=== PATIENT | male | born 1940 | race Caucasian/White ===

== ENCOUNTER 2017-02-02 02:08 | Inpatient (IN) ==
[2017-02-02] MEDS ORDERED: SODIUM CHLORIDE 0.9% 2,000 ML IV STA (03:13)
[2017-02-02] MEDS ORDERED: VANCOMYCIN INJ 1,000 MG in SODIUM CHLORIDE 0.9% 250 ML IV STA (03:15)
[2017-02-02] MEDS ORDERED: CEFEPIME 2,000 MG in SODIUM CHLORIDE 0.9% 100 ML IV STA (03:15)
[2017-02-02] MEDS ORDERED: ACETAMINOPHEN 650 MG SUPP RECTAL STA (04:20)
[2017-02-02] MEDS ORDERED: KETOROLAC 30 MG/1 ML VIAL IV STA (04:20)
[2017-02-02] MEDS ORDERED: VANCOMYCIN 1,000 MG VIAL ONE (04:32)
[2017-02-02 04:42] LABS: Basophils % 0.3 % (0.0-0.8); Hemoglobin 13.1 GM/DL (14.0-18.0); Immature Granulocytes % 0.3 %; Immature Granulocytes Absolute 0.03 #; Lymphocytes # 0.5 10*3/uL (1.4-4.0); Lymphocytes % 4.4 % (21.2-54.2); Mean Corpuscular HGB Conc 33.6 GM/DL (32-36); Mean Corpuscular Hemoglobin 31 PG (27-34); Mean Corpuscular Volume 93.3 FL (87-102); Mean Platelet Volume 10.8 FL (9.6-12.0); Monocytes # 0.8 10*3/uL (0.11-0.8); Monocytes % 6.8 % (1.7-12.7); Neutrophils # 10.1 10*3/uL (1.4-7.4); Neutrophils % 88.2 % (38.7-73.9); Platelet Count 140 T/CUMM (130-400); Red Blood Count 4.18 MC/CUMM (3.8-5.5); Red Cell Distribution Width 13.5 % (9.3-17.3); White Blood Count 11.5 T/CUMM (4-12)
[2017-02-02 05:17] LABS: Lactic Acid 3.3 MMOL/L (0.4-2.0)
[2017-02-02 05:18] LABS: Band Neutrophils 7 % (0-10); Giant Platelets Few; Hypochromasia 1+; Lymphocytes 5 % (20-55); Ovalocytes Slight; Platelet Estimate Normal; Segmented Neutrophils 82 % (50-85); Total Cells Counted 100
[2017-02-02 05:21] LABS: Calcium 8.3 MG/DL (8.5-10.1)
[2017-02-02 05:22] LABS: Albumin 2.5 G/DL (3.4-5.0); Bilirubin,Total 0.7 MG/DL (0.2-1.0); Total Protein 6.3 G/DL (6.4-8.3)
[2017-02-02 05:23] LABS: Osmolality,Calculated 298.3 MOS/KG (273-304)
[2017-02-02] MEDS ORDERED: ACETAMINOPHEN 650 MG SUPP RECTAL ONE (05:25)
[2017-02-02] MEDS ORDERED: KETOROLAC 30 MG/1 ML VIAL ONE (05:25)
[2017-02-02 05:41] LABS: Apearance,Urine CLEAR (Clear); Bilirubin,Urine Negative (Negative); Blood, Urine Moderate mg/dL (Negative); Glucose,Urine (UA) Negative (Negative); Ketones,Urine 5 mg/dL (Negative); Mucus,Urine Occasional /LPF (Occasional); Nitrite,Urine Negative (Negative); Protein,Urine 30 MG/DL; RBC,Urine 3 /HPF (0-4); Squamous Epithelial Cell,Urine Occasional /HPF (0-10); Urine Color Amber (Yellow); Urine Specific Gravity 1.024 (1.001-1.035); WBC,Urine 9 /HPF (0-6)
[2017-02-02] MEDS ORDERED: ENOXAPARIN 40 MG/0.4 ML SYRINGE SUBCUT SCH (06:43)
[2017-02-02] MEDS ORDERED: GLUCAGON 1 MG VIAL IM PRN ×2 (06:43→18:12)
[2017-02-02] MEDS ORDERED: DEXTROSE 50% 25 GM/50 ML VIAL IV PRN ×2 (06:43→18:12)
[2017-02-02] MEDS ORDERED: ACETAMINOPHEN 325 MG TABLET PO PRN (06:43)
[2017-02-02] MEDS ORDERED: ALBUTEROL 2.5 MG/3 ML NEB RESP TX PRN ×2 (06:43→07:00)
[2017-02-02] MEDS ORDERED: ONDANSETRON 4 MG/2 ML VIAL IV PRN (06:43)
[2017-02-02] MEDS ORDERED: MORPHINE 2 MG/1 ML SYRINGE IV PRN (06:43)
[2017-02-02] MEDS: ALBUTEROL 2.5 MG/3 ML NEB RESP TX SCH ×4 (08:12→19:27)
[2017-02-02 08:19] LABS: Magnesium 1.9 MG/DL (1.8-2.4); Thyroid Stimulating Hormone 3.64 uIU/ml (0.358-3.74)
[2017-02-02] MEDS: INSULIN LISPRO 100 UNIT/ML SUBCUT SCH ×4 (08:28→21:41)
[2017-02-02] MEDS: DOCUSATE SODIUM 100 MG CAPSULE PO SCH ×2 (08:28→21:41)
[2017-02-02] MEDS: PANTOPRAZOLE 40 MG TABLET PO SCH (08:28)
[2017-02-02] MEDS: ENOXAPARIN 100 MG/ML SYRINGE SUBCUT SCH ×2 (08:31→21:42)
[2017-02-02] MEDS: SODIUM CHLORIDE 0.9% 1,000 ML IV SCH ×2 (09:30→17:32)
[2017-02-02] MEDS: LEVOFLOXACIN INJ 750 MG in PREMIX 1 EACH IV SCH (11:29)
[2017-02-02] MEDS: PIPERACILLIN/TAZOBACTAM 3,375 MG in SODIUM CHLORIDE 0.9% 100 ML IV SCH (17:31)
[2017-02-02] MEDS: ZINC OXIDE PASTE 113 GM TUBE TOP SCH ×2 (17:32→21:41)
[2017-02-02] MEDS: COLLAGENASE OINT 30 GM TUBE TOP SCH (17:32)
[2017-02-02] MEDS ORDERED: MAGNESIUM CITRATE 300 ML BOTTLE PO ONE (18:11)
[2017-02-02] MEDS ORDERED: SODIUM CHLORIDE 0.9% 1,000 ML IV SCH (18:30)
[2017-02-02] MEDS ORDERED: VANCOMYCIN INJ 1,000 MG in SODIUM CHLORIDE 0.9% 250 ML IV SCH (18:30)
[2017-02-02] MEDS: DONEPEZIL 10 MG TABLET PO SCH (21:40)
[2017-02-02] MEDS: DIVALPROEX 250 MG TABLET PO SCH (21:40)
[2017-02-02] MEDS: MEMANTINE 10 MG TABLET PO SCH (21:41)
[2017-02-02] MEDS: VANCOMYCIN INJ 1,500 MG in SODIUM CHLORIDE 0.9% 500 ML IV SCH (22:34)
[2017-02-03] MEDS: ALBUTEROL 2.5 MG/3 ML NEB RESP TX SCH ×7 (00:20→23:21)
[2017-02-03] MEDS: PIPERACILLIN/TAZOBACTAM 3,375 MG in SODIUM CHLORIDE 0.9% 100 ML IV SCH ×3 (02:36→16:53)
[2017-02-03] MEDS: SODIUM CHLORIDE 0.9% 1,000 ML IV SCH ×2 (05:36→17:48)
[2017-02-03] MEDS: LEVOTHYROXINE 100 MCG TABLET PO SCH (06:20)
[2017-02-03 06:58] LABS: Basophils % 0.3 % (0.0-0.8); Hematocrit 30.9 VOL% (42.0-52.0); Hemoglobin 10.4 GM/DL (14.0-18.0); Immature Granulocytes % 0.6 %; Immature Granulocytes Absolute 0.05 #; Lymphocytes # 0.7 10*3/uL (1.4-4.0); Lymphocytes % 9.2 % (21.2-54.2); Mean Corpuscular HGB Conc 33.7 GM/DL (32-36); Mean Corpuscular Hemoglobin 32 PG (27-34); Mean Corpuscular Volume 94.2 FL (87-102); Mean Platelet Volume 11.5 FL (9.6-12.0); Monocytes # 0.6 10*3/uL (0.11-0.8); Monocytes % 7.8 % (1.7-12.7); Neutrophils # 6.5 10*3/uL (1.4-7.4); Neutrophils % 82.1 % (38.7-73.9); Platelet Count 105 T/CUMM (130-400); Red Blood Count 3.28 MC/CUMM (3.8-5.5); Red Cell Distribution Width 13.6 % (9.3-17.3)
[2017-02-03 07:31] LABS: Albumin 1.9 G/DL (3.4-5.0); Bilirubin,Total 0.6 MG/DL (0.2-1.0); Calcium 7.9 MG/DL (8.5-10.1); Osmolality,Calculated 306.6 MOS/KG (273-304); Total Protein 5.1 G/DL (6.4-8.3)
[2017-02-03 08:13] LABS: Hypochromasia 1+
[2017-02-03] MEDS: OLANZapine 5 MG TABLET PO SCH (08:52)
[2017-02-03] MEDS: DIVALPROEX 250 MG TABLET PO SCH ×2 (08:52→23:12)
[2017-02-03] MEDS: ZINC OXIDE PASTE 113 GM TUBE TOP SCH ×2 (08:52→23:14)
[2017-02-03] MEDS: PANTOPRAZOLE 40 MG TABLET PO SCH (08:52)
[2017-02-03] MEDS: ENOXAPARIN 100 MG/ML SYRINGE SUBCUT SCH ×2 (08:52→23:12)
[2017-02-03] MEDS: FOLIC ACID 1 MG TABLET PO SCH (08:52)
[2017-02-03] MEDS: POLYETHYLENE GLYCOL POWDER 17 GM PACK PO SCH (08:52)
[2017-02-03] MEDS: MEMANTINE 10 MG TABLET PO SCH ×2 (08:52→23:12)
[2017-02-03] MEDS: DOCUSATE SODIUM 100 MG CAPSULE PO SCH ×2 (08:52→23:12)
[2017-02-03] MEDS: INSULIN LISPRO 100 UNIT/ML SUBCUT SCH ×4 (08:53→23:14)
[2017-02-03] MEDS ORDERED: MELOXICAM 7.5 MG TABLET PO SCH (09:00)
[2017-02-03] MEDS: COLLAGENASE OINT 30 GM TUBE TOP SCH (10:29)
[2017-02-03] MEDS ORDERED: SODIUM CHLORIDE 0.9% 1,000 ML IV SCH (16:30)
[2017-02-03] MEDS: VANCOMYCIN INJ 1,500 MG in SODIUM CHLORIDE 0.9% 500 ML IV SCH (23:11)
[2017-02-03] MEDS: DONEPEZIL 10 MG TABLET PO SCH (23:12)
[2017-02-04] MEDS: PIPERACILLIN/TAZOBACTAM 3,375 MG in SODIUM CHLORIDE 0.9% 100 ML IV SCH ×3 (03:04→17:46)
[2017-02-04] MEDS: ALBUTEROL 2.5 MG/3 ML NEB RESP TX SCH ×5 (03:04→20:36)
[2017-02-04] MEDS: LEVOTHYROXINE 100 MCG TABLET PO SCH (06:48)
[2017-02-04 07:12] LABS: Basophils % 0.3 % (0.0-0.8); Eosinophils % 0.4 % (0.00-10.9); Hematocrit 32.5 VOL% (42.0-52.0); Hemoglobin 10.7 GM/DL (14.0-18.0); Immature Granulocytes % 0.9 %; Immature Granulocytes Absolute 0.06 #; Lymphocytes # 0.8 10*3/uL (1.4-4.0); Lymphocytes % 12.6 % (21.2-54.2); Mean Corpuscular HGB Conc 32.9 GM/DL (32-36); Mean Corpuscular Hemoglobin 32 PG (27-34); Mean Corpuscular Volume 95.6 FL (87-102); Mean Platelet Volume 11.5 FL (9.6-12.0); Monocytes # 0.5 10*3/uL (0.11-0.8); Monocytes % 7.5 % (1.7-12.7); Neutrophils # 5.2 10*3/uL (1.4-7.4); Neutrophils % 78.3 % (38.7-73.9); Platelet Count 117 T/CUMM (130-400); White Blood Count 6.7 T/CUMM (4-12)
[2017-02-04] MEDS: SODIUM CHLORIDE 0.9% 1,000 ML IV SCH ×3 (07:41→18:02)
[2017-02-04 07:43] LABS: Calcium 7.5 MG/DL (8.5-10.1); Magnesium 2.6 MG/DL (1.8-2.4); Osmolality,Calculated 301.7 MOS/KG (273-304); Potassium 4.2 MMOL/L (3.5-5.1)
[2017-02-04] MEDS: OLANZapine 5 MG TABLET PO SCH (08:47)
[2017-02-04] MEDS: MEMANTINE 10 MG TABLET PO SCH ×2 (08:47→22:31)
[2017-02-04] MEDS: ENOXAPARIN 100 MG/ML SYRINGE SUBCUT SCH ×2 (08:47→22:30)
[2017-02-04] MEDS: DIVALPROEX 250 MG TABLET PO SCH ×2 (08:47→22:31)
[2017-02-04] MEDS: DOCUSATE SODIUM 100 MG CAPSULE PO SCH ×2 (08:47→22:32)
[2017-02-04] MEDS: FOLIC ACID 1 MG TABLET PO SCH (08:47)
[2017-02-04] MEDS: PANTOPRAZOLE 40 MG TABLET PO SCH (08:47)
[2017-02-04] MEDS: POLYETHYLENE GLYCOL POWDER 17 GM PACK PO SCH (08:48)
[2017-02-04] MEDS: INSULIN LISPRO 100 UNIT/ML SUBCUT SCH ×3 (08:48→17:46)
[2017-02-04] MEDS: ZINC OXIDE PASTE 113 GM TUBE TOP SCH ×2 (09:40→22:00)
[2017-02-04] MEDS: COLLAGENASE OINT 30 GM TUBE TOP SCH (09:40)
[2017-02-04] MEDS: LEVOFLOXACIN INJ 750 MG in PREMIX 1 EACH IV SCH (14:15)
[2017-02-04] MEDS: VANCOMYCIN INJ 1,500 MG in SODIUM CHLORIDE 0.9% 500 ML IV SCH (22:30)
[2017-02-04] MEDS: APIXABAN 5 MG TABLET PO SCH (22:31)
[2017-02-04] MEDS: DONEPEZIL 10 MG TABLET PO SCH (22:31)
[2017-02-05] MEDS: ALBUTEROL 2.5 MG/3 ML NEB RESP TX SCH ×7 (00:35→23:58)
[2017-02-05] MEDS: PIPERACILLIN/TAZOBACTAM 3,375 MG in SODIUM CHLORIDE 0.9% 100 ML IV SCH ×3 (03:39→16:05)
[2017-02-05 05:05] LABS: Basophils % 0.4 % (0.0-0.8); Eosinophils # 0.1 10*3/uL (0.0-0.87); Eosinophils % 1.1 % (0.00-10.9); Hematocrit 29.4 VOL% (42.0-52.0); Hemoglobin 9.8 GM/DL (14.0-18.0); Immature Granulocytes % 1.5 %; Immature Granulocytes Absolute 0.08 #; Lymphocytes # 0.9 10*3/uL (1.4-4.0); Lymphocytes % 16.8 % (21.2-54.2); Mean Corpuscular HGB Conc 33.3 GM/DL (32-36); Mean Corpuscular Hemoglobin 32 PG (27-34); Mean Corpuscular Volume 96.1 FL (87-102); Mean Platelet Volume 11.8 FL (9.6-12.0); Monocytes # 0.5 10*3/uL (0.11-0.8); Monocytes % 8.9 % (1.7-12.7); Neutrophils # 3.8 10*3/uL (1.4-7.4); Neutrophils % 71.3 % (38.7-73.9); Platelet Count 114 T/CUMM (130-400); Red Blood Count 3.06 MC/CUMM (3.8-5.5); Red Cell Distribution Width 13.7 % (9.3-17.3); White Blood Count 5.3 T/CUMM (4-12)
[2017-02-05 05:30] LABS: Calcium 7.5 MG/DL (8.5-10.1); Magnesium 2.4 MG/DL (1.8-2.4); Osmolality,Calculated 297.7 MOS/KG (273-304); Potassium 3.8 MMOL/L (3.5-5.1)
[2017-02-05] MEDS: INSULIN LISPRO 100 UNIT/ML SUBCUT SCH ×5 (06:09→20:27)
[2017-02-05] MEDS: SODIUM CHLORIDE 0.9% 1,000 ML IV SCH ×3 (06:10→23:25)
[2017-02-05] MEDS: LEVOTHYROXINE 100 MCG TABLET PO SCH (06:10)
[2017-02-05] MEDS: ZINC OXIDE PASTE 113 GM TUBE TOP SCH ×2 (09:50→20:31)
[2017-02-05] MEDS: DIVALPROEX 250 MG TABLET PO SCH ×2 (09:50→20:30)
[2017-02-05] MEDS: ENOXAPARIN 100 MG/ML SYRINGE SUBCUT SCH ×2 (09:50→20:28)
[2017-02-05] MEDS: FOLIC ACID 1 MG TABLET PO SCH (09:50)
[2017-02-05] MEDS: POLYETHYLENE GLYCOL POWDER 17 GM PACK PO SCH ×2 (09:50→09:58)
[2017-02-05] MEDS: DOCUSATE SODIUM 100 MG CAPSULE PO SCH ×3 (09:50→20:30)
[2017-02-05] MEDS: APIXABAN 5 MG TABLET PO SCH ×2 (09:50→20:30)
[2017-02-05] MEDS: COLLAGENASE OINT 30 GM TUBE TOP SCH (09:51)
[2017-02-05] MEDS: MEMANTINE 10 MG TABLET PO SCH ×2 (09:51→20:30)
[2017-02-05] MEDS: OLANZapine 5 MG TABLET PO SCH (09:51)
[2017-02-05] MEDS: PANTOPRAZOLE 40 MG TABLET PO SCH (09:51)
[2017-02-05] MEDS: VANCOMYCIN INJ 1,500 MG in SODIUM CHLORIDE 0.9% 500 ML IV SCH (13:07)
[2017-02-05] MEDS ORDERED: SKIN HEALING OINT (AQUAPHOR) 50 GM TUBE TOP PRN (15:18)
[2017-02-05] MEDS: DONEPEZIL 10 MG TABLET PO SCH (20:30)
[2017-02-06] MEDS: ALBUTEROL 2.5 MG/3 ML NEB RESP TX SCH ×6 (02:33→23:59)
[2017-02-06] MEDS: LEVOTHYROXINE 100 MCG TABLET PO SCH (06:13)
[2017-02-06 06:36] LABS: Basophils % 0.6 % (0.0-0.8); Eosinophils # 0.1 10*3/uL (0.0-0.87); Eosinophils % 1.9 % (0.00-10.9); Hematocrit 31.1 VOL% (42.0-52.0); Hemoglobin 10.3 GM/DL (14.0-18.0); Immature Granulocytes % 1.3 %; Immature Granulocytes Absolute 0.06 #; Lymphocytes # 0.7 10*3/uL (1.4-4.0); Mean Corpuscular HGB Conc 33.1 GM/DL (32-36); Mean Corpuscular Hemoglobin 32 PG (27-34); Mean Corpuscular Volume 95.1 FL (87-102); Mean Platelet Volume 11.4 FL (9.6-12.0); Monocytes # 0.6 10*3/uL (0.11-0.8); Monocytes % 12.1 % (1.7-12.7); Neutrophils # 3.3 10*3/uL (1.4-7.4); Neutrophils % 69.1 % (38.7-73.9); Platelet Count 116 T/CUMM (130-400); Red Blood Count 3.27 MC/CUMM (3.8-5.5); Red Cell Distribution Width 13.5 % (9.3-17.3); White Blood Count 4.7 T/CUMM (4-12)
[2017-02-06 07:13] LABS: Calcium 7.6 MG/DL (8.5-10.1); Magnesium 2.1 MG/DL (1.8-2.4); Osmolality,Calculated 293.7 MOS/KG (273-304); Potassium 3.4 MMOL/L (3.5-5.1)
[2017-02-06] MEDS: SODIUM CHLORIDE 0.9% 1,000 ML IV SCH ×3 (07:33→23:48)
[2017-02-06] MEDS: INSULIN LISPRO 100 UNIT/ML SUBCUT SCH ×4 (08:00→20:49)
[2017-02-06] MEDS: POLYETHYLENE GLYCOL POWDER 17 GM PACK PO SCH (09:01)
[2017-02-06] MEDS: PANTOPRAZOLE 40 MG TABLET PO SCH (09:01)
[2017-02-06] MEDS: DIVALPROEX 250 MG TABLET PO SCH ×2 (09:01→20:08)
[2017-02-06] MEDS: DOCUSATE SODIUM 100 MG CAPSULE PO SCH ×2 (09:01→20:08)
[2017-02-06] MEDS: OLANZapine 5 MG TABLET PO SCH (09:01)
[2017-02-06] MEDS: APIXABAN 5 MG TABLET PO SCH ×2 (09:01→20:08)
[2017-02-06] MEDS: FOLIC ACID 1 MG TABLET PO SCH (09:01)
[2017-02-06] MEDS: ENOXAPARIN 100 MG/ML SYRINGE SUBCUT SCH ×2 (09:01→20:08)
[2017-02-06] MEDS: COLLAGENASE OINT 30 GM TUBE TOP SCH (09:01)
[2017-02-06] MEDS: ZINC OXIDE PASTE 113 GM TUBE TOP SCH ×2 (09:01→20:08)
[2017-02-06] MEDS: MEMANTINE 10 MG TABLET PO SCH ×2 (09:01→20:08)
[2017-02-06] MEDS: LEVOFLOXACIN INJ 750 MG in PREMIX 1 EACH IV SCH (11:32)
[2017-02-06] MEDS ORDERED: POTASSIUM CHLORIDE 20 MEQ TABLET PO ONE (19:13)
[2017-02-06 20:05] LABS: Prealbumin 9.3 MG/DL (20-40)
[2017-02-06] MEDS: DONEPEZIL 10 MG TABLET PO SCH (20:08)
[2017-02-07] MEDS: ALBUTEROL 2.5 MG/3 ML NEB RESP TX SCH ×6 (03:54→23:02)
[2017-02-07] MEDS: LEVOTHYROXINE 100 MCG TABLET PO SCH (06:16)
[2017-02-07 07:04] LABS: Basophils % 0.4 % (0.0-0.8); Eosinophils # 0.1 10*3/uL (0.0-0.87); Eosinophils % 1.6 % (0.00-10.9); Hematocrit 30.5 VOL% (42.0-52.0); Hemoglobin 10.3 GM/DL (14.0-18.0); Immature Granulocytes Absolute 0.05 #; Lymphocytes # 0.6 10*3/uL (1.4-4.0); Lymphocytes % 11.5 % (21.2-54.2); Mean Corpuscular HGB Conc 33.8 GM/DL (32-36); Mean Corpuscular Hemoglobin 32 PG (27-34); Mean Corpuscular Volume 93.6 FL (87-102); Mean Platelet Volume 11.3 FL (9.6-12.0); Monocytes # 0.7 10*3/uL (0.11-0.8); Monocytes % 12.9 % (1.7-12.7); Neutrophils # 3.7 10*3/uL (1.4-7.4); Neutrophils % 72.6 % (38.7-73.9); Platelet Count 151 T/CUMM (130-400); Red Blood Count 3.26 MC/CUMM (3.8-5.5); Red Cell Distribution Width 13.6 % (9.3-17.3); White Blood Count 5.1 T/CUMM (4-12)
[2017-02-07 07:37] LABS: Calcium 7.5 MG/DL (8.5-10.1); Free T4 (Free Thyroxine) 1.13 NG/DL (0.76-1.46); Magnesium 1.9 MG/DL (1.8-2.4); Osmolality,Calculated 293.8 MOS/KG (273-304); Potassium 3.6 MMOL/L (3.5-5.1); Risk Ratio 7.56
[2017-02-07] MEDS: SODIUM CHLORIDE 0.9% 1,000 ML IV SCH ×3 (07:49→17:36)
[2017-02-07] MEDS: DIVALPROEX 250 MG TABLET PO SCH ×2 (09:17→20:08)
[2017-02-07] MEDS: ENOXAPARIN 100 MG/ML SYRINGE SUBCUT SCH ×2 (09:18→20:08)
[2017-02-07] MEDS: OLANZapine 5 MG TABLET PO SCH (09:18)
[2017-02-07] MEDS: FOLIC ACID 1 MG TABLET PO SCH (09:18)
[2017-02-07] MEDS: ZINC OXIDE PASTE 113 GM TUBE TOP SCH ×2 (09:18→20:09)
[2017-02-07] MEDS: APIXABAN 5 MG TABLET PO SCH ×2 (09:18→20:09)
[2017-02-07] MEDS: DOCUSATE SODIUM 100 MG CAPSULE PO SCH ×2 (09:18→20:08)
[2017-02-07] MEDS: MEMANTINE 10 MG TABLET PO SCH ×2 (09:18→20:09)
[2017-02-07] MEDS: POLYETHYLENE GLYCOL POWDER 17 GM PACK PO SCH (09:18)
[2017-02-07] MEDS: PANTOPRAZOLE 40 MG TABLET PO SCH (09:18)
[2017-02-07] MEDS: INSULIN LISPRO 100 UNIT/ML SUBCUT SCH ×4 (09:19→20:34)
[2017-02-07] MEDS: COLLAGENASE OINT 30 GM TUBE TOP SCH (10:06)
[2017-02-07] MEDS: DONEPEZIL 10 MG TABLET PO SCH (20:08)
[2017-02-07] MEDS: CHOLESTYRAMINE 4 GM PACK PO SCH (20:39)
[2017-02-08] MEDS: ALBUTEROL 2.5 MG/3 ML NEB RESP TX SCH ×3 (03:03→11:26)
[2017-02-08] MEDS: LEVOTHYROXINE 100 MCG TABLET PO SCH (06:00)
[2017-02-08 07:59] LABS: Basophils % 0.7 % (0.0-0.8); Eosinophils # 0.1 10*3/uL (0.0-0.87); Eosinophils % 3.1 % (0.00-10.9); Hematocrit 31.2 VOL% (42.0-52.0); Hemoglobin 10.3 GM/DL (14.0-18.0); Immature Granulocytes % 1.1 %; Immature Granulocytes Absolute 0.05 #; Lymphocytes # 0.8 10*3/uL (1.4-4.0); Lymphocytes % 17.2 % (21.2-54.2); Mean Corpuscular Hemoglobin 31 PG (27-34); Mean Corpuscular Volume 94.5 FL (87-102); Mean Platelet Volume 11.2 FL (9.6-12.0); Monocytes # 0.7 10*3/uL (0.11-0.8); Monocytes % 15.3 % (1.7-12.7); Neutrophils # 2.9 10*3/uL (1.4-7.4); Neutrophils % 62.6 % (38.7-73.9); Platelet Count 181 T/CUMM (130-400); Red Cell Distribution Width 13.7 % (9.3-17.3); White Blood Count 4.6 T/CUMM (4-12)
[2017-02-08 08:40] LABS: Calcium 7.9 MG/DL (8.5-10.1); Magnesium 1.8 MG/DL (1.8-2.4); Osmolality,Calculated 291.7 MOS/KG (273-304); Potassium 3.3 MMOL/L (3.5-5.1)
[2017-02-08] MEDS: ZINC OXIDE PASTE 113 GM TUBE TOP SCH (08:50)
[2017-02-08] MEDS: INSULIN LISPRO 100 UNIT/ML SUBCUT SCH ×2 (09:45→13:00)
[2017-02-08] MEDS: APIXABAN 5 MG TABLET PO SCH (10:50)
[2017-02-08] MEDS: DIVALPROEX 250 MG TABLET PO SCH (10:50)
[2017-02-08] MEDS: DOCUSATE SODIUM 100 MG CAPSULE PO SCH (10:50)
[2017-02-08] MEDS: PANTOPRAZOLE 40 MG TABLET PO SCH (10:50)
[2017-02-08] MEDS: CHOLESTYRAMINE 4 GM PACK PO SCH (10:50)
[2017-02-08] MEDS: POLYETHYLENE GLYCOL POWDER 17 GM PACK PO SCH (10:50)
[2017-02-08] MEDS: MEMANTINE 10 MG TABLET PO SCH (10:50)
[2017-02-08] MEDS: FOLIC ACID 1 MG TABLET PO SCH (10:50)
[2017-02-08] MEDS: COLLAGENASE OINT 30 GM TUBE TOP SCH (11:50)
[2017-02-08 12:45] VITALS: BP 136/68
== END 2017-02-08 14:05 | DRG 193 ==
LOC: EDUNIT# → N.ED 02:08 → SUATTDRO 05:25 → N.EDINP 05:25 → N.5E 05:59
PROVIDERS: ADMIT Internal Medicine; ATTEND Internal Medicine

== ENCOUNTER 2017-03-01 23:40 | Inpatient (IN) ==
[2017-03-02] MEDS ORDERED: SODIUM CHLORIDE 0.9% 2,450 ML IV ONE (00:37)
[2017-03-02] MEDS ORDERED: CEFEPIME 2,000 MG in SODIUM CHLORIDE 0.9% 100 ML IV STA (00:39)
[2017-03-02 00:56] LABS: VBG HCO3 28.4 MEQ/L (24-28); VBG Oxygen Saturation 96.2 %; VBG PCO2 42.1 MMHG (41-51); VBG PH 7.447; VBG PO2 88.8 MMHG (17-40)
[2017-03-02 01:07] LABS: Alanine Aminotransferase 15 U/L (16-61); Albumin 1.7 G/DL (3.4-5.0); Alkaline Phosphatase 35 U/L (45-117); Aspartate Amino Transferase 50 U/L (0-37); Bilirubin,Total < 0.39 MG/DL (0.2-1.0); Blood Urea Nitrogen 57 MG/DL (7-18); Calcium 7.8 MG/DL (8.5-10.1); Glucose 205 MG/DL (74-106); Osmolality,Calculated 330.2 MOS/KG (273-304); Potassium 3.2 MMOL/L (3.5-5.1); Sodium 156 MMOL/L (136-145)
[2017-03-02 01:08] LABS: Basophils % 0.1 % (0.0-0.8); Hematocrit 34.4 VOL% (42.0-52.0); Immature Granulocytes % 1.1 %; Immature Granulocytes Absolute 0.08 #; Lymphocytes # 1.2 10*3/uL (1.4-4.0); Lymphocytes % 16.1 % (21.2-54.2); Mean Corpuscular Hemoglobin 31 PG (27-34); Mean Corpuscular Volume 95.8 FL (87-102); Mean Platelet Volume 12.2 FL (9.6-12.0); Monocytes # 0.4 10*3/uL (0.11-0.8); Monocytes % 5.7 % (1.7-12.7); Neutrophils # 5.7 10*3/uL (1.4-7.4); Platelet Count 153 T/CUMM (130-400); Red Blood Count 3.59 MC/CUMM (3.8-5.5); Red Cell Distribution Width 14.6 % (9.3-17.3); White Blood Count 7.4 T/CUMM (4-12)
[2017-03-02 01:19] LABS: Apearance,Urine CLOUDY (Clear); Bacteria,Urine Occasional /HPF (Few); Bilirubin,Urine Negative (Negative); Blood, Urine Small mg/dL (Negative); Glucose,Urine (UA) 50 mg/dL (Negative); Granular Casts,Urine 7 /LPF (0-1); Hyaline Casts,Urine 22 /LPF (0-3); Ketones,Urine Negative (Negative); Mucus,Urine Few /LPF (Occasional); Nitrite,Urine Negative (Negative); Protein,Urine 30 MG/DL; RBC,Urine 4 /HPF (0-4); Squamous Epithelial Cell,Urine Occasional /HPF (0-10); Urine Color Amber (Yellow); Urine Urobilinogen < 2.0 EU/DL (0.2-1.0); WBC,Urine 11 /HPF (0-6)
[2017-03-02] MEDS: VANCOMYCIN INJ 1,250 MG in SODIUM CHLORIDE 0.45% 250 ML IV SCH ×3 (01:49→18:12)
[2017-03-02] MEDS ORDERED: SODIUM CHLORIDE 0.9% 500 ML IV STA (03:23)
[2017-03-02] MEDS ORDERED: SODIUM CHLORIDE 0.9% 1,000 ML IV SCH (03:30)
[2017-03-02] MEDS ORDERED: NOREPINEPHRINE 4 MG/4 ML VIAL IV ONE (03:34)
[2017-03-02] MEDS ORDERED: NOREPINEPHRINE 4 MG in SODIUM CHLORIDE 0.9% 250 ML IV SCH (04:00)
[2017-03-02] MEDS ORDERED: POTASSIUM CHLORIDE RIDER 10 MEQ in PREMIX 1 EACH IV PRN (05:28)
[2017-03-02] MEDS: NOREPINEPHRINE 8 MG in SODIUM CHLORIDE 0.9% 242 ML IV SCH ×2 (06:50→15:44)
[2017-03-02] MEDS: ALBUTEROL/IPRATROPIUM 3 ML NEB RESP TX SCH ×3 (07:21→18:50)
[2017-03-02] MEDS ORDERED: LEVOFLOXACIN INJ 150 ML IV ONE (07:35)
[2017-03-02] MEDS: LEVOFLOXACIN INJ 750 MG in PREMIX 1 EACH IV SCH (07:39)
[2017-03-02] MEDS: SODIUM CHLORIDE 0.45% 1,000 ML IV SCH ×2 (10:54→19:03)
[2017-03-02] MEDS: INSULIN REGULAR 100 UNIT/ML SUBCUT SCH (18:13)
[2017-03-02] MEDS: SODIUM HYPOCHLORITE 0.25% IRRIG 473 ML BOTTLE TOP SCH (18:39)
[2017-03-03] MEDS: INSULIN REGULAR 100 UNIT/ML SUBCUT SCH ×5 (00:06→23:47)
[2017-03-03] MEDS: ALBUTEROL/IPRATROPIUM 3 ML NEB RESP TX SCH ×4 (01:33→19:10)
[2017-03-03 02:19] LABS: Basophils % 0.2 % (0.0-0.8); Hematocrit 28.4 VOL% (42.0-52.0); Immature Granulocytes % 1.5 %; Immature Granulocytes Absolute 0.07 #; Lymphocytes # 0.6 10*3/uL (1.4-4.0); Lymphocytes % 12.5 % (21.2-54.2); Mean Corpuscular HGB Conc 31.7 GM/DL (32-36); Mean Corpuscular Hemoglobin 31 PG (27-34); Mean Corpuscular Volume 97.3 FL (87-102); Mean Platelet Volume 12.2 FL (9.6-12.0); Monocytes # 0.3 10*3/uL (0.11-0.8); Monocytes % 7.1 % (1.7-12.7); Neutrophils # 3.8 10*3/uL (1.4-7.4); Neutrophils % 78.7 % (38.7-73.9); Platelet Count 108 T/CUMM (130-400); Red Blood Count 2.92 MC/CUMM (3.8-5.5); Red Cell Distribution Width 14.5 % (9.3-17.3); White Blood Count 4.8 T/CUMM (4-12)
[2017-03-03 02:47] LABS: Alanine Aminotransferase 15 U/L (16-61); Albumin 1.5 G/DL (3.4-5.0); Alkaline Phosphatase 35 U/L (45-117); Aspartate Amino Transferase 37 U/L (0-37); Bilirubin,Total < 0.39 MG/DL (0.2-1.0); Blood Urea Nitrogen 53 MG/DL (7-18); Calcium 7.3 MG/DL (8.5-10.1); Glucose 226 MG/DL (74-106); Osmolality,Calculated 325.4 MOS/KG (273-304); Potassium 2.9 MMOL/L (3.5-5.1); Sodium 154 MMOL/L (136-145); Total Protein 4.5 G/DL (6.4-8.3)
[2017-03-03] MEDS: SODIUM CHLORIDE 0.45% 1,000 ML IV SCH ×3 (03:26→14:45)
[2017-03-03] MEDS: POTASSIUM CHLORIDE RIDER 10 MEQ in PREMIX 1 EACH IV PRN ×7 (03:52→23:37)
[2017-03-03 05:06] LABS: Band Neutrophils 10 % (0-10); Eosinophils 1 % (0-10); Lymphocytes 12 % (20-55); Metamyelocytes 1 %; Platelet Estimate Decreased; Segmented Neutrophils 68 % (50-85); Total Cells Counted 100
[2017-03-03] MEDS: VANCOMYCIN INJ 1,250 MG in SODIUM CHLORIDE 0.45% 250 ML IV SCH ×2 (05:15→17:07)
[2017-03-03] MEDS: NOREPINEPHRINE 8 MG in SODIUM CHLORIDE 0.9% 242 ML IV SCH (06:48)
[2017-03-03] MEDS ORDERED: SKIN HEALING OINT (AQUAPHOR) 50 GM TUBE TOP PRN (08:11)
[2017-03-03] MEDS ORDERED: CHLORHEXIDINE 4% SOLN 118 ML BOTTLE TOP ONE (08:11)
[2017-03-03] MEDS: SODIUM HYPOCHLORITE 0.25% IRRIG 473 ML BOTTLE TOP SCH (09:11)
[2017-03-03] MEDS: COLLAGENASE OINT 30 GM TUBE TOP SCH (10:03)
[2017-03-03] MEDS: DEXTROSE 5% NACL 0.45% 1,000 ML IV SCH (17:08)
[2017-03-04] MEDS: ALBUTEROL/IPRATROPIUM 3 ML NEB RESP TX SCH ×4 (00:03→20:01)
[2017-03-04] MEDS: POTASSIUM CHLORIDE RIDER 10 MEQ in PREMIX 1 EACH IV PRN ×9 (00:53→23:00)
[2017-03-04] MEDS: ACETAMINOPHEN 650 MG SUPP RECTAL PRN ×3 (01:17→20:19)
[2017-03-04] MEDS: VANCOMYCIN INJ 1,250 MG in SODIUM CHLORIDE 0.45% 250 ML IV SCH ×2 (05:27→17:01)
[2017-03-04] MEDS: INSULIN REGULAR 100 UNIT/ML SUBCUT SCH ×3 (06:48→18:39)
[2017-03-04] MEDS: LEVOFLOXACIN INJ 750 MG in PREMIX 1 EACH IV SCH (07:45)
[2017-03-04] MEDS: DEXTROSE 5% NACL 0.45% 1,000 ML IV SCH (10:52)
[2017-03-05] MEDS: ALBUTEROL/IPRATROPIUM 3 ML NEB RESP TX SCH ×4 (01:34→20:01)
[2017-03-05] MEDS: SODIUM HYPOCHLORITE 0.25% IRRIG 473 ML BOTTLE TOP SCH ×2 (02:45→08:45)
[2017-03-05] MEDS: INSULIN REGULAR 100 UNIT/ML SUBCUT SCH ×4 (02:46→17:42)
[2017-03-05] MEDS: COLLAGENASE OINT 30 GM TUBE TOP SCH ×2 (02:46→08:45)
[2017-03-05] MEDS: DEXTROSE 5% NACL 0.45% 1,000 ML IV SCH (05:20)
[2017-03-05] MEDS: VANCOMYCIN INJ 1,250 MG in SODIUM CHLORIDE 0.45% 250 ML IV SCH ×3 (05:21→18:18)
[2017-03-05 07:48] LABS: Basophils % 0.7 % (0.0-0.8); Eosinophils # 0.1 10*3/uL (0.0-0.87); Eosinophils % 1.3 % (0.00-10.9); Hematocrit 26.7 VOL% (42.0-52.0); Hemoglobin 8.6 GM/DL (14.0-18.0); Immature Granulocytes % 1.5 %; Immature Granulocytes Absolute 0.08 #; Lymphocytes # 0.6 10*3/uL (1.4-4.0); Lymphocytes % 10.3 % (21.2-54.2); Mean Corpuscular HGB Conc 32.2 GM/DL (32-36); Mean Corpuscular Hemoglobin 31 PG (27-34); Mean Corpuscular Volume 95.4 FL (87-102); Mean Platelet Volume 12.9 FL (9.6-12.0); Monocytes # 0.3 10*3/uL (0.11-0.8); Monocytes % 6.1 % (1.7-12.7); Neutrophils # 4.4 10*3/uL (1.4-7.4); Neutrophils % 80.1 % (38.7-73.9); Platelet Count 125 T/CUMM (130-400); Red Cell Distribution Width 14.9 % (9.3-17.3); White Blood Count 5.4 T/CUMM (4-12)
[2017-03-05 08:04] LABS: Calcium 7.5 MG/DL (8.5-10.1); Osmolality,Calculated 312.6 MOS/KG (273-304); Potassium 3.4 MMOL/L (3.5-5.1)
[2017-03-05 08:13] LABS: Hypochromasia 1+; Macrocytosis 1+
[2017-03-05 08:14] LABS: Target Cells Slight
[2017-03-05] MEDS ORDERED: POTASSIUM CHLORIDE INJ 30 MEQ in DEXTROSE 5% NACL 0.45% 1,000 ML IV SCH (10:00)
[2017-03-05] MEDS ORDERED: FUROSEMIDE 40 MG/4 ML VIAL IV ONE (11:03)
[2017-03-05] MEDS ORDERED: IBUPROFEN 400 MG TABLET PO PRN (11:29)
[2017-03-05] MEDS ORDERED: ALUMINUM/MAGNES/SIMETH MAX STR 30 ML UDCUP PO PRN (11:29)
[2017-03-05] MEDS: DIVALPROEX 500 MG TABLET PO SCH ×2 (14:02→20:10)
[2017-03-05] MEDS: LEVOFLOXACIN INJ 750 MG in PREMIX 1 EACH IV SCH (15:52)
[2017-03-05] MEDS: POTASSIUM CHLORIDE RIDER 10 MEQ in PREMIX 1 EACH IV PRN ×2 (17:42→23:48)
[2017-03-05] MEDS: MEMANTINE 10 MG TABLET PO SCH (20:06)
[2017-03-05] MEDS: APIXABAN 5 MG TABLET PO SCH (20:06)
[2017-03-05] MEDS: DONEPEZIL 10 MG TABLET PO SCH (20:06)
[2017-03-06] MEDS: INSULIN REGULAR 100 UNIT/ML SUBCUT SCH ×4 (00:48→17:42)
[2017-03-06] MEDS: ALBUTEROL/IPRATROPIUM 3 ML NEB RESP TX SCH ×4 (01:47→20:02)
[2017-03-06] MEDS: POTASSIUM CHLORIDE RIDER 10 MEQ in PREMIX 1 EACH IV PRN (04:41)
[2017-03-06] MEDS: LEVOTHYROXINE 112 MCG TABLET PO SCH ×2 (06:20→09:25)
[2017-03-06] MEDS: DIVALPROEX 500 MG TABLET PO SCH ×4 (08:47→21:41)
[2017-03-06] MEDS: APIXABAN 5 MG TABLET PO SCH ×3 (08:47→21:41)
[2017-03-06] MEDS: SODIUM HYPOCHLORITE 0.25% IRRIG 473 ML BOTTLE TOP SCH (08:47)
[2017-03-06] MEDS: COLLAGENASE OINT 30 GM TUBE TOP SCH (08:47)
[2017-03-06] MEDS: MEMANTINE 10 MG TABLET PO SCH ×3 (08:47→21:41)
[2017-03-06] MEDS: VANCOMYCIN INJ 1,250 MG in SODIUM CHLORIDE 0.45% 250 ML IV SCH (11:23)
[2017-03-06] MEDS: LEVOFLOXACIN INJ 750 MG in PREMIX 1 EACH IV SCH (15:01)
[2017-03-06] MEDS: DONEPEZIL 10 MG TABLET PO SCH (21:41)
[2017-03-07] MEDS: INSULIN REGULAR 100 UNIT/ML SUBCUT SCH ×4 (00:57→18:18)
[2017-03-07] MEDS: ALBUTEROL/IPRATROPIUM 3 ML NEB RESP TX SCH ×4 (01:47→20:37)
[2017-03-07 03:17] LABS: Basophils % 0.5 % (0.0-0.8); Eosinophils # 0.1 10*3/uL (0.0-0.87); Eosinophils % 1.5 % (0.00-10.9); Hematocrit 24.7 VOL% (42.0-52.0); Immature Granulocytes % 1.5 %; Immature Granulocytes Absolute 0.08 #; Lymphocytes % 18.8 % (21.2-54.2); Mean Corpuscular HGB Conc 32.4 GM/DL (32-36); Mean Corpuscular Hemoglobin 31 PG (27-34); Mean Corpuscular Volume 94.3 FL (87-102); Mean Platelet Volume 12.3 FL (9.6-12.0); Monocytes # 0.8 10*3/uL (0.11-0.8); Monocytes % 14.4 % (1.7-12.7); Neutrophils # 3.5 10*3/uL (1.4-7.4); Neutrophils % 63.3 % (38.7-73.9); Platelet Count 181 T/CUMM (130-400); Red Blood Count 2.62 MC/CUMM (3.8-5.5); Red Cell Distribution Width 14.6 % (9.3-17.3); White Blood Count 5.5 T/CUMM (4-12)
[2017-03-07 03:24] LABS: INR 1.4; PT Patient Result 14.6 SECS
[2017-03-07 03:49] LABS: Albumin 1.5 G/DL (3.4-5.0); Bilirubin,Total 0.8 MG/DL (0.2-1.0); Calcium 7.2 MG/DL (8.5-10.1); Osmolality,Calculated 307.9 MOS/KG (273-304); Total Protein 4.2 G/DL (6.4-8.3)
[2017-03-07] MEDS: VANCOMYCIN INJ 1,250 MG in SODIUM CHLORIDE 0.45% 250 ML IV SCH (05:47)
[2017-03-07] MEDS: LEVOTHYROXINE 112 MCG TABLET PO SCH (08:12)
[2017-03-07] MEDS: MEMANTINE 10 MG TABLET PO SCH ×2 (08:13→21:46)
[2017-03-07] MEDS: POTASSIUM CHLORIDE RIDER 10 MEQ in PREMIX 1 EACH IV PRN ×5 (08:13→22:04)
[2017-03-07] MEDS: APIXABAN 5 MG TABLET PO SCH ×2 (08:13→21:46)
[2017-03-07] MEDS: DIVALPROEX 500 MG TABLET PO SCH ×3 (08:13→21:46)
[2017-03-07] MEDS: SODIUM HYPOCHLORITE 0.25% IRRIG 473 ML BOTTLE TOP SCH (08:20)
[2017-03-07] MEDS: COLLAGENASE OINT 30 GM TUBE TOP SCH (08:20)
[2017-03-07] MEDS: POTASSIUM CHLORIDE 20 MEQ PACK PO SCH (15:00)
[2017-03-07] MEDS: LEVOFLOXACIN INJ 750 MG in PREMIX 1 EACH IV SCH (15:00)
[2017-03-07] MEDS: DONEPEZIL 10 MG TABLET PO SCH (21:46)
[2017-03-08] MEDS: INSULIN REGULAR 100 UNIT/ML SUBCUT SCH ×4 (00:45→17:42)
[2017-03-08] MEDS: ALBUTEROL/IPRATROPIUM 3 ML NEB RESP TX SCH ×4 (01:04→20:07)
[2017-03-08] MEDS: VANCOMYCIN INJ 1,250 MG in SODIUM CHLORIDE 0.45% 250 ML IV SCH ×2 (01:24→17:42)
[2017-03-08] MEDS ORDERED: ceFAZolin 1,000 MG in SYRINGE 1 EACH IV ONE (06:00)
[2017-03-08] MEDS: LEVOTHYROXINE 112 MCG TABLET PO SCH ×2 (06:15→14:49)
[2017-03-08] MEDS ORDERED: BUPIVACAINE 0.25% 50 ML VIAL ONE (06:30)
[2017-03-08] MEDS ORDERED: MIDAZOLAM 2 MG/2 ML VIAL ONE (08:55)
[2017-03-08] MEDS ORDERED: PROPOFOL 200 MG/20 ML VIAL IV ONE (08:55)
[2017-03-08] MEDS ORDERED: fentaNYL 100 MCG/2 ML VIAL ONE (08:55)
[2017-03-08] MEDS ORDERED: HYDROmorphone 2 MG/1 ML VIAL IV PRN (08:56)
[2017-03-08] MEDS ORDERED: ACETAMINOPHEN 325 MG TABLET PO PRN (08:56)
[2017-03-08] MEDS ORDERED: ONDANSETRON 4 MG/2 ML VIAL IV PRN (08:56)
[2017-03-08] MEDS ORDERED: oxyCODONE/ACETAMINOPHEN 5-325 MG TABLET PO PRN (08:56)
[2017-03-08] MEDS: DIVALPROEX 500 MG TABLET PO SCH ×3 (09:27→22:10)
[2017-03-08] MEDS: SODIUM HYPOCHLORITE 0.25% IRRIG 473 ML BOTTLE TOP SCH (09:27)
[2017-03-08] MEDS: MEMANTINE 10 MG TABLET PO SCH ×3 (09:28→22:10)
[2017-03-08] MEDS: APIXABAN 5 MG TABLET PO SCH ×3 (09:28→22:10)
[2017-03-08] MEDS: COLLAGENASE OINT 30 GM TUBE TOP SCH (09:28)
[2017-03-08] MEDS: POTASSIUM CHLORIDE 20 MEQ PACK PO SCH ×2 (09:28→14:50)
[2017-03-08] MEDS: PANTOPRAZOLE 40 MG TABLET PO SCH (09:28)
[2017-03-08] MEDS: DEXTROSE 5% NACL 0.45% 1,000 ML IV SCH (09:36)
[2017-03-08 13:24] LABS: Hematocrit 24.6 VOL% (42.0-52.0); Hemoglobin 7.8 GM/DL (14.0-18.0)
[2017-03-08] MEDS: ceFAZolin 2,000 MG in PREMIX 1 EACH IV SCH ×2 (14:46→23:16)
[2017-03-08] MEDS: LEVOFLOXACIN INJ 750 MG in PREMIX 1 EACH IV SCH (15:55)
[2017-03-08] MEDS: DONEPEZIL 10 MG TABLET PO SCH (22:10)
[2017-03-09] MEDS: ALBUTEROL/IPRATROPIUM 3 ML NEB RESP TX SCH ×4 (00:57→19:31)
[2017-03-09] MEDS: INSULIN REGULAR 100 UNIT/ML SUBCUT SCH ×4 (00:59→18:09)
[2017-03-09] MEDS: DEXTROSE 5% NACL 0.45% 1,000 ML IV SCH ×3 (02:00→22:51)
[2017-03-09] MEDS ORDERED: ENOXAPARIN 30 MG/0.3 ML SYRINGE SUBCUT SCH (03:00)
[2017-03-09] MEDS: LEVOTHYROXINE 112 MCG TABLET PO SCH (06:13)
[2017-03-09 08:46] LABS: Basophils % 0.3 % (0.0-0.8); Eosinophils # 0.1 10*3/uL (0.0-0.87); Eosinophils % 0.8 % (0.00-10.9); Hematocrit 25.5 VOL% (42.0-52.0); Hemoglobin 8.1 GM/DL (14.0-18.0); Immature Granulocytes % 1.2 %; Immature Granulocytes Absolute 0.09 #; Lymphocytes # 1.4 10*3/uL (1.4-4.0); Lymphocytes % 18.2 % (21.2-54.2); Mean Corpuscular HGB Conc 31.8 GM/DL (32-36); Mean Corpuscular Hemoglobin 31 PG (27-34); Mean Platelet Volume 11.4 FL (9.6-12.0); Monocytes # 0.6 10*3/uL (0.11-0.8); Monocytes % 8.2 % (1.7-12.7); Neutrophils # 5.6 10*3/uL (1.4-7.4); Neutrophils % 71.3 % (38.7-73.9); Platelet Count 161 T/CUMM (130-400); Red Blood Count 2.63 MC/CUMM (3.8-5.5); Red Cell Distribution Width 14.7 % (9.3-17.3); White Blood Count 7.8 T/CUMM (4-12)
[2017-03-09 09:11] LABS: Calcium 7.5 MG/DL (8.5-10.1); Potassium 3.2 MMOL/L (3.5-5.1)
[2017-03-09] MEDS: DIVALPROEX 500 MG TABLET PO SCH ×3 (09:44→22:20)
[2017-03-09] MEDS: POTASSIUM CHLORIDE 20 MEQ PACK PO SCH (09:44)
[2017-03-09] MEDS: APIXABAN 5 MG TABLET PO SCH ×2 (09:45→22:20)
[2017-03-09] MEDS: MEMANTINE 10 MG TABLET PO SCH ×2 (09:45→22:20)
[2017-03-09] MEDS: PANTOPRAZOLE 40 MG TABLET PO SCH (09:45)
[2017-03-09 09:54] LABS: Band Neutrophils 1 % (0-10); Hypochromasia 1+; Lymphocytes 15 % (20-55); Segmented Neutrophils 77 % (50-85); Total Cells Counted 100
[2017-03-09] MEDS: POTASSIUM CHLORIDE RIDER 10 MEQ in PREMIX 1 EACH IV PRN ×3 (13:01→22:48)
[2017-03-09] MEDS: VANCOMYCIN INJ 1,250 MG in SODIUM CHLORIDE 0.45% 250 ML IV SCH (15:21)
[2017-03-09] MEDS: LEVOFLOXACIN INJ 750 MG in PREMIX 1 EACH IV SCH (15:31)
[2017-03-09] MEDS: SODIUM HYPOCHLORITE 0.25% IRRIG 473 ML BOTTLE TOP SCH (15:32)
[2017-03-09] MEDS: COLLAGENASE OINT 30 GM TUBE TOP SCH (15:32)
[2017-03-09] MEDS: DONEPEZIL 10 MG TABLET PO SCH (22:19)
[2017-03-10] MEDS: ALBUTEROL/IPRATROPIUM 3 ML NEB RESP TX SCH ×4 (00:14→20:06)
[2017-03-10] MEDS: INSULIN REGULAR 100 UNIT/ML SUBCUT SCH ×4 (01:02→19:08)
[2017-03-10] MEDS: POTASSIUM CHLORIDE RIDER 10 MEQ in PREMIX 1 EACH IV PRN ×2 (02:49→09:08)
[2017-03-10] MEDS: LEVOTHYROXINE 112 MCG TABLET PO SCH (07:20)
[2017-03-10 07:32] LABS: Basophils % 0.2 % (0.0-0.8); Eosinophils % 0.5 % (0.00-10.9); Hematocrit 24.3 VOL% (42.0-52.0); Hemoglobin 7.7 GM/DL (14.0-18.0); Immature Granulocytes % 0.9 %; Immature Granulocytes Absolute 0.05 #; Lymphocytes # 0.7 10*3/uL (1.4-4.0); Lymphocytes % 12.7 % (21.2-54.2); Mean Corpuscular HGB Conc 31.7 GM/DL (32-36); Mean Corpuscular Hemoglobin 31 PG (27-34); Mean Corpuscular Volume 96.4 FL (87-102); Monocytes # 0.4 10*3/uL (0.11-0.8); Monocytes % 7.3 % (1.7-12.7); Neutrophils # 4.4 10*3/uL (1.4-7.4); Neutrophils % 78.4 % (38.7-73.9); Platelet Count 157 T/CUMM (130-400); Red Blood Count 2.52 MC/CUMM (3.8-5.5); Red Cell Distribution Width 14.6 % (9.3-17.3); White Blood Count 5.6 T/CUMM (4-12)
[2017-03-10 08:00] LABS: Band Neutrophils 5 % (0-10); Hypochromasia 1+; Lymphocytes 5 % (20-55); Microcytosis 2+; Platelet Estimate Adequate; Segmented Neutrophils 82 % (50-85); Total Cells Counted 100
[2017-03-10 08:10] LABS: Calcium 7.5 MG/DL (8.5-10.1); Osmolality,Calculated 305.6 MOS/KG (273-304); Potassium 3.2 MMOL/L (3.5-5.1)
[2017-03-10] MEDS: PANTOPRAZOLE 40 MG TABLET PO SCH (08:23)
[2017-03-10] MEDS: SODIUM HYPOCHLORITE 0.25% IRRIG 473 ML BOTTLE TOP SCH (08:23)
[2017-03-10] MEDS: DIVALPROEX 500 MG TABLET PO SCH ×3 (08:23→23:37)
[2017-03-10] MEDS: MEMANTINE 10 MG TABLET PO SCH ×2 (08:23→23:37)
[2017-03-10] MEDS: APIXABAN 5 MG TABLET PO SCH ×2 (08:23→23:37)
[2017-03-10] MEDS: POTASSIUM CHLORIDE 20 MEQ PACK PO SCH (08:23)
[2017-03-10] MEDS: COLLAGENASE OINT 30 GM TUBE TOP SCH (08:24)
[2017-03-10] MEDS: DEXTROSE 5% NACL 0.45% 1,000 ML IV SCH ×2 (10:52→18:06)
[2017-03-10 10:56] LABS: Hemoglobin 7.9 GM/DL (14.0-18.0)
[2017-03-10] MEDS: POTASSIUM CHLORIDE 20 MEQ/15 ML UDCUP PER TUBE PRN ×4 (11:59→16:12)
[2017-03-10] MEDS: DONEPEZIL 10 MG TABLET PO SCH (23:37)
[2017-03-11] MEDS: ALBUTEROL/IPRATROPIUM 3 ML NEB RESP TX SCH ×2 (00:16→07:19)
[2017-03-11] MEDS: INSULIN REGULAR 100 UNIT/ML SUBCUT SCH ×2 (01:38→07:20)
[2017-03-11] MEDS ORDERED: MEROPENEM 1,000 MG in SYRINGE 1 EACH IV SCH (08:00)
[2017-03-11] MEDS ORDERED: MEROPENEM 1,000 MG in SODIUM CHLORIDE 0.9% 50 ML IV SCH (08:00)
[2017-03-11] MEDS: LEVOTHYROXINE 112 MCG TABLET PO SCH (08:27)
[2017-03-11] MEDS: PANTOPRAZOLE 40 MG TABLET PO SCH (08:27)
[2017-03-11] MEDS: SODIUM HYPOCHLORITE 0.25% IRRIG 473 ML BOTTLE TOP SCH (08:27)
[2017-03-11] MEDS: APIXABAN 5 MG TABLET PO SCH (08:27)
[2017-03-11] MEDS: MEMANTINE 10 MG TABLET PO SCH (08:27)
[2017-03-11] MEDS: POTASSIUM CHLORIDE 20 MEQ PACK PO SCH (08:27)
[2017-03-11] MEDS: DIVALPROEX 500 MG TABLET PO SCH (08:27)
[2017-03-11] MEDS: COLLAGENASE OINT 30 GM TUBE TOP SCH (08:28)
[2017-03-11] MEDS: DEXTROSE 5% NACL 0.45% 1,000 ML IV SCH (08:34)
[2017-03-11 09:49] VITALS: BP 129/61
== END 2017-03-11 10:09 | DRG 853 ==
LOC: EDBD → EDUNIT# → N.ED 23:40 → N.EDINP 03-02 04:30 → SUATTDRO 03-02 04:30 → N.ICU 03-02 12:25 → N.5E 03-03 16:03
PROVIDERS: ADMIT Hospitalist; ATTEND Internal Medicine

== ENCOUNTER 2017-03-13 06:15 | Inpatient (IN) ==
[2017-03-13] MEDS ORDERED: ONDANSETRON ODT 4 MG TABLET PO STA (06:26)
[2017-03-13] MEDS ORDERED: PIPERACILLIN/TAZOBACTAM 3,375 MG in SODIUM CHLORIDE 0.9% 100 ML IV STA (06:26)
[2017-03-13] MEDS ORDERED: VANCOMYCIN INJ 1,000 MG in SODIUM CHLORIDE 0.9% 250 ML IV STA ×2 (06:26→08:56)
[2017-03-13] MEDS ORDERED: SODIUM CHLORIDE 0.9% 500 ML IV STA (06:26)
[2017-03-13] MEDS ORDERED: ALBUTEROL 2.5 MG/3 ML NEB RESP TX ONE ×2 (06:47→07:13)
[2017-03-13] MEDS: ALBUTEROL 2.5 MG/3 ML NEB RESP TX SCH ×3 (06:50→07:34)
[2017-03-13 06:57] LABS: ABG HCO3 26.2 MMOL/L (20-26); ABG Oxygen Saturation 91.6 % (95-100); ABG PCO2 30.8 MM HG (35-48); ABG PH 7.548 (7.35-7.45); ABG TCO2 27.2 MMOL/L (23-27); Allen Test Positive
[2017-03-13 07:20] LABS: Basophils # 0.1 10*3/uL (0.0-0.2); Basophils % 0.4 % (0.0-0.8); Hematocrit 26.9 VOL% (42.0-52.0); Hemoglobin 8.8 GM/DL (14.0-18.0); Immature Granulocytes % 1.5 %; Lymphocytes # 1.2 10*3/uL (1.4-4.0); Lymphocytes % 8.6 % (21.2-54.2); Mean Corpuscular HGB Conc 32.7 GM/DL (32-36); Mean Corpuscular Hemoglobin 32 PG (27-34); Mean Corpuscular Volume 96.8 FL (87-102); Mean Platelet Volume 11.3 FL (9.6-12.0); Monocytes # 0.5 10*3/uL (0.11-0.8); Monocytes % 3.8 % (1.7-12.7); NRBC # 0.03 10*3/uL; Neutrophils # 11.8 10*3/uL (1.4-7.4); Neutrophils % 85.7 % (38.7-73.9); Platelet Count 242 T/CUMM (130-400); Red Blood Count 2.78 MC/CUMM (3.8-5.5); Red Cell Distribution Width 14.8 % (9.3-17.3); White Blood Count 13.8 T/CUMM (4-12)
[2017-03-13 08:22] LABS: Apearance,Urine Slightly Hazy (Clear); Bacteria,Urine Occasional /HPF (Few); Bilirubin,Urine Negative (Negative); Blood, Urine Small mg/dL (Negative); Glucose,Urine (UA) Negative (Negative); Ketones,Urine Negative (Negative); Mucus,Urine Occasional /LPF (Occasional); Nitrite,Urine Negative (Negative); Protein,Urine 30 MG/DL; RBC,Urine 8 /HPF (0-4); Squamous Epithelial Cell,Urine Occasional /HPF (0-10); Urine Color Yellow (Yellow); Urine Specific Gravity 1.014 (1.001-1.035); Urine Urobilinogen < 2.0 EU/DL (0.2-1.0); WBC,Urine 5 /HPF (0-6)
[2017-03-13] MEDS ORDERED: ALBUTEROL/IPRATROPIUM 3 ML NEB RESP TX PRN (08:43)
[2017-03-13] MEDS ORDERED: ALBUTEROL 2.5 MG/3 ML NEB RESP TX PRN (08:43)
[2017-03-13] MEDS ORDERED: ONDANSETRON 4 MG/2 ML VIAL IV PRN (08:50)
[2017-03-13] MEDS ORDERED: ACETAMINOPHEN 325 MG TABLET PO PRN (08:50)
[2017-03-13] MEDS ORDERED: PHENYLEPHRINE DRIP 40 MG/250 ML PREMIX IV SCH (09:00)
[2017-03-13] MEDS ORDERED: LEVOFLOXACIN INJ 750 MG in PREMIX 1 EACH IV STA (09:01)
[2017-03-13] MEDS ORDERED: DEXTROSE 50% 25 GM/50 ML VIAL IV PRN (09:26)
[2017-03-13] MEDS ORDERED: GLUCAGON 1 MG VIAL IM PRN (09:26)
[2017-03-13] MEDS ORDERED: LEVOFLOXACIN INJ 750 MG in PREMIX 1 EACH IV SCH (09:30)
[2017-03-13 09:31] LABS: Albumin 1.7 G/DL (3.4-5.0); Bilirubin,Total 0.4 MG/DL (0.2-1.0); Calcium 7.9 MG/DL (8.5-10.1); Osmolality,Calculated 312.4 MOS/KG (273-304); Potassium 3.7 MMOL/L (3.5-5.1); Total Protein 5.7 G/DL (6.4-8.3)
[2017-03-13 09:32] LABS: Troponin I Only 0.134 NG/ML (0.00-0.045)
[2017-03-13] MEDS ORDERED: MORPHINE 2 MG/1 ML SYRINGE IV PRN (09:57)
[2017-03-13] MEDS ORDERED: LORazepam 2 MG/1 ML VIAL IV PRN (09:58)
[2017-03-13] MEDS ORDERED: LEVOFLOXACIN INJ 150 ML IV ONE (10:18)
[2017-03-13] MEDS: VALPROIC ACID INJ 750 MG in SODIUM CHLORIDE 0.9% 100 ML IV SCH ×2 (11:17→22:30)
[2017-03-13] MEDS ORDERED: PANTOPRAZOLE 40 MG VIAL IV ONE (11:54)
[2017-03-13] MEDS: PANTOPRAZOLE 40 MG VIAL IV SCH (11:58)
[2017-03-13] MEDS ORDERED: INSULIN REGULAR 100 UNIT/ML SUBCUT SCH (12:00)
[2017-03-13] MEDS: ACETAMINOPHEN 650 MG SUPP RECTAL PRN (19:26)
[2017-03-14] MEDS: VALPROIC ACID INJ 750 MG in SODIUM CHLORIDE 0.9% 100 ML IV SCH ×2 (09:24→20:09)
[2017-03-14] MEDS: PANTOPRAZOLE 40 MG VIAL IV SCH (09:24)
[2017-03-14] MEDS ORDERED: fentaNYL 12 MCG/HR PATCH TRANSDERM SCH (11:30)
[2017-03-14] MEDS: ACETAMINOPHEN 650 MG SUPP RECTAL PRN (20:01)
[2017-03-15] MEDS: VALPROIC ACID INJ 750 MG in SODIUM CHLORIDE 0.9% 100 ML IV SCH (09:14)
[2017-03-15] MEDS: PANTOPRAZOLE 40 MG VIAL IV SCH (09:15)
[2017-03-15 11:26] VITALS: BP 108/71
[2017-03-15] MEDS ORDERED: SKIN HEALING OINT (AQUAPHOR) 50 GM TUBE TOP PRN (13:25)
[2017-03-15] MEDS ORDERED: COLLAGENASE OINT 30 GM TUBE TOP SCH (14:00)
== END 2017-03-15 14:25 | disposition hospice, inpatient (51) | DRG 871 ==
LOC: EDBD → EDUNIT# → N.ED 06:15 → N.EDINP 08:43 → SUATTDRO 08:43 → N.EDINP 14:58 → N.5E 15:29
PROVIDERS: ADMIT Internal Medicine; ATTEND Internal Medicine